=== PATIENT | male | born 1960 | race African-American/Black ===

== ENCOUNTER 2018-01-04 17:41 | Inpatient (IN) | payer OTHER ==
[~2018-01-04] VITALS: Ht 180.3 cm; Wt 100.3 kg
[2018-01-04] MEDS ORDERED: IV NORMAL SALINE 1000ML BAG 1,000 ML IV SCH (18:34)
--- NOTE | 2018-01-04 18:45 | PHYS DOC ---
Adult General Chief Complaint Chief Complaint: ABNORMAL LABS HPI HPI Patient is a 57-year-old male who presents with report of abnormal lab values that were obtained yesterday. Patient indicates that he has been having abdominal pain with decreased appetite over the last week and patient's states that she had noticed that it looked like her had been losing weight and she also noticed that his eyes were yellow. This prompted her to make sure that he was seen by his doctor. After lab work had returned today, patient's provider had contacted him in indicated that he needed to come in to the emergency room to be seen and treated. Currently patient indicates he has no pain and is not nauseated. He states that usually the pain is worsened when he coughs. He states that he has also been intermittently nauseated but has been unable to vomit. He denies any chest pain or shortness of breath. Patient just indicates that he has not been feeling well for the last week. He denies any fever. Review of Systems Review of Systems Constitutional: Denies fever or chills [] Eyes: reports yellow sclera[] Respiratory: Denies cough or shortness of breath [] Cardiovascular: Denies chest pain[] GI: Complains of abdominal pain with nausea. Denies vomiting or diarrhea[] : Reports urinary frequency without dysuria[] Musculoskeletal: Denies back pain or joint pain [] Integument: Denies rash or skin lesions [] Neurologic: Denies headache, focal weakness or sensory changes [] All other systems were reviewed and found to be within normal limits, except as documented in this note. Current Medications Current Medications Current Medications Medications (Trade) Dose Ordered Sig/Nubia Start Time Stop Time Status Last Admin Dose Admin Info (CONTRAST GIVEN -- Rx MONITORING) 1 each PRN DAILY PRN 01/04/18 20:30 01/06/18 20:29 Iohexol (Omnipaque 300 Mg/ml) 75 ml 1X ONCE 01/04/18 20:15 01/04/18 20:16 DC Piperacillin Sod/ Tazobactam Sod 3.375 gm/Sodium Chloride 50 ml @ 100 mls/hr 1X ONCE 01/04/18 20:30 01/04/18 20:59 DC 01/04/18 20:25 100 MLS/HR Sodium Chloride 1,000 ml @ 1,000 mls/hr Q1H 01/04/18 18:34 01/04/18 19:33 DC 01/04/18 18:34 1,000 MLS/HR Allergies Allergies Allergies Coded Allergies Type Severity Reaction Last Updated Verified No Known Allergies Allergy Unknown 01/04/18 Yes Physical Exam Physical Exam Constitutional: Well developed, well nourished, no acute distress, non-toxic appearance. [] HENT: Normocephalic, atraumatic, bilateral external ears normal, oropharynx moist, no oral exudates, nose normal. [] Eyes: PERRLA, EOMI, conjunctiva normal, no discharge. Scleral icterus is noted. [] Neck: Normal range of motion, no tenderness, supple, no stridor. [] Cardiovascular:Heart rate regular rhythm [] Lungs & Thorax: Bilateral breath sounds clear to auscultation [] Abdomen: Bowel sounds normal, soft, no tenderness. [] Skin: Warm, dry, no erythema, no rash. [] Extremities: No tenderness, no cyanosis, no clubbing, ROM intact, no edema. [] Neurologic: Alert and oriented X 3, normal motor function, normal sensory function, no focal deficits noted. [] Current Patient Data Vital Signs Vital Signs Date Time Temp Pulse Resp B/P (MAP) Pulse Ox O2 Delivery O2 Flow Rate FiO2 01/04/18 19:30 87 16 129/85 (100) 100 01/04/18 18:30 98.5 Room Air 98.5 Lab Values Laboratory Tests Test 01/04/18 18:35 01/04/18 19:50 White Blood Count 19.2 x10^3/uL (4.0-11.0) H Red Blood Count 4.37 x10^6/uL (4.30-5.70) Hemoglobin 14.4 g/dL (13.0-17.5) Hematocrit 41.4 % (39.0-53.0) Mean Corpuscular Volume 95 fL (79-100) Mean Corpuscular Hemoglobin 33 pg (25-35) Mean Corpuscular Hemoglobin Concent 35 g/dL (31-37) Red Cell Distribution Width 13.8 % (11.5-14.5) Platelet Count 345 x10^3/uL (140-400) Neutrophils (%) (Auto) 89 % (31-73) H Lymphocytes (%) (Auto) 4 % (24-48) L Monocytes (%) (Auto) 6 % (0-9) Eosinophils (%) (Auto) 0 % (0-3) Basophils (%) (Auto) 1 % (0-3) Neutrophils # (Auto) 17.2 x10^3uL (1.8-7.7) H Lymphocytes # (Auto) 0.8 x10^3/uL (1.0-4.8) L Monocytes # (Auto) 1.2 x10^3/uL (0.0-1.1) H Eosinophils # (Auto) 0.0 x10^3/uL (0.0-0.7) Basophils # (Auto) 0.1 x10^3/uL (0.0-0.2) Segmented Neutrophils % 84 % (35-66) H Band Neutrophils % 6 % (0-9) Lymphocytes % 5 % (24-48) L Monocytes % 5 % (0-10) Toxic Granulation Mod Toxic Vacuolation Slight Platelet Estimate Adequate (ADEQUATE) Large Platelets Present Prothrombin Time 15.1 SEC (11.7-14.0) H Prothrombin Time INR 1.2 (0.8-1.1) H Sodium Level 127 mmol/L (136-145) L Potassium Level 4.2 mmol/L (3.5-5.1) Chloride Level 89 mmol/L (98-107) L Carbon Dioxide Level 26 mmol/L (21-32) Anion Gap 12 (6-14) Blood Urea Nitrogen 25 mg/dL (8-26) Creatinine 1.3 mg/dL (0.7-1.3) Estimated GFR (Cockcroft-Gault) 68.8 Glucose Level 128 mg/dL (70-99) H Calcium Level 8.5 mg/dL (8.5-10.1) Total Bilirubin 9.9 mg/dL (0.2-1.0) H Direct Bilirubin 8.7 mg/dL (0.0-0.2) H Aspartate Amino Transferase (AST) 95 U/L (15-37) H Alanine Aminotransferase (ALT) 83 U/L (16-63) H Alkaline Phosphatase 142 U/L (46-116) H Total Protein 6.8 g/dL (6.4-8.2) Albumin 2.0 g/dL (3.4-5.0) L Lipase 179 U/L (73-393) Urine Collection Type Unknown Urine Color Erica Urine Clarity Clear Urine pH 5.0 Urine Specific [place] 1.025 Urine Protein 30 mg/dL (NEG-TRACE) Urine Glucose (UA) Negative mg/dL (NEG) Urine Ketones (Stick) 15 mg/dL (NEG) Urine Blood Moderate (NEG) Urine Nitrite (NEG) Urine Bilirubin Large (NEG) Urine Urobilinogen Dipstick 4.0 mg/dL (0.2 mg/dL) Urine Leukocyte Esterase (NEG) Urine RBC Occ /HPF (0-2) Urine WBC 1-4 /HPF (0-4) Urine Squamous Epithelial Cells Few /LPF Urine Renal Epithelial Cells Occ /LPF Urine Bacteria 0 /HPF (0-FEW) Urine Hyaline Casts Few /HPF Urine Granular Casts Moderate /HPF Urine Mucus Mod /LPF Urine Opiates Screen Neg (NEG) Urine Methadone Screen Neg (NEG) Urine Barbiturates Neg (NEG) Urine Phencyclidine Screen Neg (NEG) Urine Amphetamine/Methamphetamine Neg (NEG) Urine Benzodiazepines Screen Neg (NEG) Urine Cocaine Screen Neg (NEG) Urine Cannabinoids Screen Neg (NEG) Urine Ethyl Alcohol Neg (NEG) Laboratory Tests 01/04/18 18:35 Laboratory Tests 01/04/18 18:35 EKG EKG [] Radiology/Procedures Radiology/Procedures [] Course & Med Decision Making Course & Med Decision Making Pertinent Labs and Imaging studies reviewed. (See chart for details) [] Dragon Disclaimer Dragon Disclaimer This electronic medical record was generated, in whole or in part, using a voice recognition dictation system. Departure Departure Impression: Primary Impression: Upper abdominal pain Additional Impressions: Jaundice Hyponatremia Disposition: ADMITTED INPATIENT Admitting Physician: Keyla Peña Condition: IMPROVED Referrals: UNKNOWN PCP NAME (PCP) Problem Qualifiers ANA CRUZ Jr. DO Jan 04, 2018 18:45
[2018-01-04 18:52] LABS: BASO # 0.1 x10^3/uL (0.0-0.2); BASO % 1 % (0-3); EOS % 0 % (0-3); HEMATOCRIT 41.4 % (39.0-53.0); HEMOGLOBIN 14.4 g/dL (13.0-17.5); LYMPH # 0.8 x10^3/uL (1.0-4.8); LYMPH % 4 % (24-48); MEAN CORPUSCULAR HEMOGLOBIN 33 pg (25-35); MEAN CORPUSCULAR HGB CONC 35 g/dL (31-37); MEAN CORPUSCULAR VOLUME 95 fL (79-100); MONO # 1.2 x10^3/uL (0.0-1.1); MONO % 6 % (0-9); NEUT # 17.2 x10^3uL (1.8-7.7); NEUT % 89 % (31-73); PLATELET COUNT 345 x10^3/uL (140-400); RED BLOOD COUNT 4.37 x10^6/uL (4.30-5.70); RED CELL DISTRIBUTION WIDTH 13.8 % (11.5-14.5); WHITE BLOOD COUNT 19.2 x10^3/uL (4.0-11.0)
[2018-01-04 18:53] LABS: PROTHROMBIN TIME PATIENT 15.1 SEC (11.7-14.0)
[2018-01-04 18:58] LABS: CALCIUM 8.5 mg/dL (8.5-10.1); CREATININE 1.3 mg/dL (0.7-1.3); GFR 68.8; POTASSIUM 4.2 mmol/L (3.5-5.1)
[2018-01-04 19:04] LABS: DIRECT BILIRUBIN 8.7 mg/dL (0.0-0.2); TOTAL BILIRUBIN 9.9 mg/dL (0.2-1.0); TOTAL PROTEIN 6.8 g/dL (6.4-8.2)
[2018-01-04 19:46] LABS: % BANDS 6 % (0-9); % LYMPHS 5 % (24-48); % MONOS 5 % (0-10); % SEGS 84 % (35-66); PLT ESTIMATE ADEQUATE (ADEQUATE); TOXIC GRANULATION MOD
[2018-01-04 19:47] LABS: TOXIC VACUOLATION SLIGHT
--- NOTE | 2018-01-04 19:57 | RAD ---
Indication:abd pain, bili 8.4, elevated lfts and wbc TECHNIQUE: Grayscale, color Doppler and spectral waveform is of the abdomen obtained. COMPARISON:None FINDINGS: The visualized portions of the pancreas is within normal limits. Pancreatic tail not visualized due to overlying bowel gas. There is a 3.9 x 4.8 x 2.6 cm high echogenic lesion in the left hepatic lobe. Main portal vein is patent with hepatopedal flow. There is some hypoechoic filling defect seen in the portal vein. Hepatic veins are patent. Liver is mildly enlarged measuring 19 cm in longest dimension with diffusely increased echogenicity and decreased through transmission. Right kidney measures 13.7 cm in length without hydronephrosis. No gallstones, pericholecystic fluid or gallbladder wall thickening. CBD measures 3 mm in diameter and is within normal limits. IMPRESSION: 1. Mild hepatomegaly with hepatic steatosis. 2. Suggestion of thickening of the portal vein wall which may suggest nonoccluding eccentric thrombus. Correlation with outside CT abdomen pelvis for evaluation of portal vein is recommended. 3. Left hepatic lobe lesion most likely a hemangioma. Either correlation with outside imaging or nonemergent MRI of the abdomen with IV contrast recommended. Electronically signed by: Chauncey Gama DO (01/04/2018 7:54 PM) [facility]
[2018-01-04 20:01] LABS: BILIRUBIN,URINE LARGE (NEG); CLARITY,URINE CLEAR; PROTEIN,URINE 30 mg/dL (NEG-TRACE)
[2018-01-04 20:07] LABS: BARBITURATES NEG (NEG); BENZODIAZEPINES NEG (NEG); CANNABINOIDS NEG (NEG); COCAINE NEG (NEG); METHADONE NEG (NEG); OPIATES NEG (NEG); PHENCYCLIDINE NEG (NEG)
[2018-01-04 20:08] LABS: AMPHETAMINE/METHAMPHETAMINE NEG (NEG)
[2018-01-04 20:13] LABS: BACTERIA,URINE 0 /HPF (0-FEW); COLOR,URINE AMBER; SQUAMOUS EPITHELIAL CELL,UR FEW /LPF
[2018-01-04 20:14] LABS: GRANULAR CASTS,URINE MODERATE /HPF; HYALINE CASTS, URINE FEW /HPF; RBC,URINE OCC /HPF (0-2)
[2018-01-04] MEDS ORDERED: IOHEXOL 300 MG/ML 100ML VIAL. IV ONE (20:15)
[2018-01-04] MEDS ORDERED: CONTRAST GIVEN. MC PRN (20:30)
[2018-01-04] MEDS ORDERED: PIPERACILLIN/TAZOBACTAM 3.375 GM in IV NORMAL SALINE 50ML 50 ML IV ONE (20:30)
[2018-01-04 22:15] VITALS: BP 123/75
[2018-01-04] MEDS ORDERED: ASPI81TA50 PO (22:24)
[2018-01-04 23:00] VITALS: BP 123/78
[2018-01-05] MEDS ORDERED: ONDANSETRON PF 4 MG/2 ML VIAL. IV PRN (01:00)
[2018-01-05] MEDS ORDERED: MORPHINE SULFATE 2 MG/ML VIAL. IV PRN (01:00)
[2018-01-05] MEDS: IV NORMAL SALINE 1000ML BAG 1,000 ML IV SCH ×3 (01:07→20:10)
[2018-01-05 03:00] VITALS: BP 114/74
[2018-01-05 07:00] VITALS: BP 114/75
--- NOTE | 2018-01-05 07:13 | EKG ---
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
[2018-01-05] MEDS ORDERED: ACETAMINOPHEN 500 MG TABLET PO PRN (08:15)
[2018-01-05] MEDS ORDERED: HYDROcodone/APAP 5/325MG 1 TAB TABLET PO PRN (08:15)
[2018-01-05] MEDS ORDERED: PIP/TAZO PER PHARMACY MC PRN (08:15)
--- NOTE | 2018-01-05 09:11 | PDOC2 ---
GI CONSULT Reason For Consult: Jaundice, high bili, portal vein thrombus? HPI: HPI: 57 y/o male who has not felt well at least since 12/26/17. Describes decreased appetite and early satiety w/ weight loss of about 20 pounds. No n/v, dysphagia , reflux, diarrhea, constipation, hematochezia, or melena. Abdominal "soreness " when he coughs sometimes, but "not pain." Yesterday his noticed his eyes were yellow. Had abnormal labs as outpt and was advised to come to the ER. Significant labs: WBC 19.2, normal plt and INR, bili 9.9 (direct 8.7), AST 95, ALT 83, Alk Phos 142. Tmax 100. On US: hepatomegaly w/ hepatic steatosis, thickened portal vein, and left hepatic lobe lesion (?hemangioma). No previous EGD or colonoscopy. Denies GB, liver, and pancreas history. Denies h/o blood transfusions, Hepatitis, and IVDU. Takes ASA 81mg daily. Retired in September. Seems drank some alcohol regularly in the past (pretty vague description), none since 11/2017. PMH: PMH: "left eye aneurysm" FH: Family History: Cancer (mother - unknown kind) Social History: Smoke: <1 pack per day ALCOHOL: other (used to have 3 "drinks" plus a beer in a 5 day period, sober since November) Drugs: None ROS: GEN: Denies fevers, chills, sweats HEENT: +eyes look yellow CV: Denies chest pain RESP: Denies shortness of air, cough GI: Per HPI : Denies hematuria, dysuria ENDO: +weight loss NEURO: Denies confusion, dizziness MSK: Denies weakness, joint pain/swelling SKIN: +pruritus Vitals: Vitals: Vital Signs Date Time Temp Pulse Resp B/P (MAP) Pulse Ox O2 Delivery O2 Flow Rate FiO2 01/05/18 07:00 98.6 82 20 114/75 (88) 94 Room Air 98.6 Labs: Labs: Laboratory Tests Test 01/04/18 18:35 01/04/18 19:50 White Blood Count 19.2 x10^3/uL (4.0-11.0) Red Blood Count 4.37 x10^6/uL (4.30-5.70) Hemoglobin 14.4 g/dL (13.0-17.5) Hematocrit 41.4 % (39.0-53.0) Mean Corpuscular Volume 95 fL (79-100) Mean Corpuscular Hemoglobin 33 pg (25-35) Mean Corpuscular Hemoglobin Concent 35 g/dL (31-37) Red Cell Distribution Width 13.8 % (11.5-14.5) Platelet Count 345 x10^3/uL (140-400) Neutrophils (%) (Auto) 89 % (31-73) Lymphocytes (%) (Auto) 4 % (24-48) Monocytes (%) (Auto) 6 % (0-9) Eosinophils (%) (Auto) 0 % (0-3) Basophils (%) (Auto) 1 % (0-3) Neutrophils # (Auto) 17.2 x10^3uL (1.8-7.7) Lymphocytes # (Auto) 0.8 x10^3/uL (1.0-4.8) Monocytes # (Auto) 1.2 x10^3/uL (0.0-1.1) Eosinophils # (Auto) 0.0 x10^3/uL (0.0-0.7) Basophils # (Auto) 0.1 x10^3/uL (0.0-0.2) Segmented Neutrophils % 84 % (35-66) Band Neutrophils % 6 % (0-9) Lymphocytes % 5 % (24-48) Monocytes % 5 % (0-10) Toxic Granulation Mod Toxic Vacuolation Slight Platelet Estimate Adequate (ADEQUATE) Large Platelets Present Prothrombin Time 15.1 SEC (11.7-14.0) Prothromb Time International Ratio 1.2 (0.8-1.1) Sodium Level 127 mmol/L (136-145) Potassium Level 4.2 mmol/L (3.5-5.1) Chloride Level 89 mmol/L (98-107) Carbon Dioxide Level 26 mmol/L (21-32) Anion Gap 12 (6-14) Blood Urea Nitrogen 25 mg/dL (8-26) Creatinine 1.3 mg/dL (0.7-1.3) Estimated GFR (Cockcroft-Gault) 68.8 Glucose Level 128 mg/dL (70-99) Calcium Level 8.5 mg/dL (8.5-10.1) Total Bilirubin 9.9 mg/dL (0.2-1.0) Direct Bilirubin 8.7 mg/dL (0.0-0.2) Aspartate Amino Transf (AST/SGOT) 95 U/L (15-37) Alanine Aminotransferase (ALT/SGPT) 83 U/L (16-63) Alkaline Phosphatase 142 U/L (46-116) Total Protein 6.8 g/dL (6.4-8.2) Albumin 2.0 g/dL (3.4-5.0) Lipase 179 U/L (73-393) Thyroid Stimulating Hormone (TSH) 0.675 uIU/mL (0.358-3.74) Urine Collection Type Unknown Urine Color Erica Urine Clarity Clear Urine pH 5.0 Urine Specific [place] 1.025 Urine Protein 30 mg/dL (NEG-TRACE) Urine Glucose (UA) Negative mg/dL (NEG) Urine Ketones (Stick) 15 mg/dL (NEG) Urine Blood Moderate (NEG) Urine Nitrite (NEG) Urine Bilirubin Large (NEG) Urine Urobilinogen Dipstick 4.0 mg/dL (0.2 mg/dL) Urine Leukocyte Esterase (NEG) Urine RBC Occ /HPF (0-2) Urine WBC 1-4 /HPF (0-4) Urine Squamous Epithelial Cells Few /LPF Urine Renal Epithelial Cells Occ /LPF Urine Bacteria 0 /HPF (0-FEW) Urine Hyaline Casts Few /HPF Urine Granular Casts Moderate /HPF Urine Mucus Mod /LPF Urine Opiates Screen Neg (NEG) Urine Methadone Screen Neg (NEG) Urine Barbiturates Neg (NEG) Urine Phencyclidine Screen Neg (NEG) Urine Amphetamine/Methamphetamine Neg (NEG) Urine Benzodiazepines Screen Neg (NEG) Urine Cocaine Screen Neg (NEG) Urine Cannabinoids Screen Neg (NEG) Urine Ethyl Alcohol Neg (NEG) Allergies: Coded Allergies: No Known Allergies (Verified Allergy, Unknown, 01/04/18) Medications: Current Medications Medications (Trade) Dose Ordered Sig/Nubia Route PRN Reason Start Time Stop Time Status Last Admin Dose Admin Sodium Chloride 1,000 ml @ 1,000 mls/hr Q1H IV 01/04/18 18:34 01/04/18 19:33 DC 01/04/18 18:34 Piperacillin Sod/ Tazobactam Sod 3.375 gm/Sodium Chloride 50 ml @ 100 mls/hr 1X ONCE IV 01/04/18 20:30 01/04/18 20:59 DC 01/04/18 20:25 Sodium Chloride 1,000 ml @ 125 mls/hr Q8H IV 01/05/18 01:00 01/05/18 01:07 Imaging: Imaging: RUQ US IMPRESSION: 1. Mild hepatomegaly with hepatic steatosis. 2. Suggestion of thickening of the portal vein wall which may suggest nonoccluding eccentric thrombus. Correlation with outside CT abdomen pelvis for evaluation of portal vein is recommended. 3. Left hepatic lobe lesion most likely a hemangioma. Either correlation with outside imaging or nonemergent MRI of the abdomen with IV contrast recommended. PE: GEN: NAD HEENT: Atraumatic, +sclerae icteric LUNGS: CTAB HEART: RRR ABD: NABS, more firm/fullness in RUQ, not particularly tender or distended EXTREMITY: No edema SKIN: No rashes NEURO/PSYCH: A & O 3 A/P: A/P: Decreased appetite, early satiety, scleral icterus Leukocytosis, hyponatremia, hyperbilirubinemia Abnormal liver imaging - hepatomegaly, hepatic steatosis, thickened PV, left hepatic lesion CRC screen - none -- Reviewed w/ Dr. Verde - check CT w/ contrast. EVIN JEAN Jan 05, 2018 09:11
[2018-01-05] MEDS ORDERED: CONTRAST GIVEN. MC PRN (09:30)
[2018-01-05] MEDS ORDERED: IOHEXOL 300 MG/ML 100ML VIAL. IV ONE (09:30)
[2018-01-05] MEDS: PIPERACILLIN/TAZOBACTAM 3.375 GM in IV NORMAL SALINE 50ML 50 ML IV SCH ×2 (10:25→17:31)
[2018-01-05 11:00] VITALS: BP 112/75
--- NOTE | 2018-01-05 11:31 | PDOC1 ---
History and Physical Date of Admission Date of Admission DATE: 01/05/18 TIME: 11:22 Identification/Chief Complaint Chief Complaint Yellow skin, weight loss, poor appetite Source Source: Caregiver, Chart review, Patient History of Present Illness History of Present Illness Very pleasant 57-year-old -[place] male otherwise previously healthy, no home meds prior to admission, is concerned because of the above chief complaint, jaundice, icteric sclerae, weight loss, poor appetite and tea- colored urine. Went to see PCP or other medical services, labs were drawn and were abnormal hence advised to come to the hospital. At the emergency room, bilirubin is high 9.9-with direct bilirubin 8.7-with febrile temperatures 100.2. Also bilirubin seen in the urine. Urine is tea colored as seen on urinal. AST elevated 95, ALT elevated at 83, jaundiced with icteric sclerae. Alkaline phosphatase elevated at 140s. Albumin albumin low at 2.0. WBC elevated at 19.2 with no obvious source. Some hyponatremia 127. Patient denies any history of hepatitis or known liver disease. 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 But maybe stopped 1 month ago. He has been complaining of weight loss fatigue, for maybe a week or 2. GI has seen, we'll order some or imaging and blood tests. Patient is agreeable with plan of care. Patient is nontoxic appearing, no nausea vomiting emesis, tolerated breakfast fine. CT imaging shows fatty liver, steatosis, possible eccentric nonocclusive thrombus portal system/portal vein? Past Medical History Cardiovascular: No pertinent hx Pulmonary: No pertinent hx GI: No pertinent hx Heme/Onc: No pertinent hx Hepatobiliary: No pertinent hx Psych: No pertinent hx Rheumatologic: No pertinent hx Infectious disease: No pertinent hx ENT: No pertinent hx Renal/: No pertinent hx Endocrine: No pertinent hx Dermatology: No pertinent hx Past Surgical History Past Surgical History: No pertinent history Family History Family History: No Significant Social History Smoke: No ALCOHOL: other (used to have 3 "drinks" plus a beer in a 5 day period, sober since November) Drugs: None Current Problem List Problem List Problems Medical Problems: (1) Hyponatremia Status: Acute (2) Jaundice Status: Acute (3) Upper abdominal pain Status: Acute Current Medications Current Medications Current Medications Sodium Chloride 1,000 ml @ 1,000 mls/hr Q1H IV Last administered on at 18:34; Start 01/04/18 at 18:34; Stop 01/04/18 at 19:33; Status DC Piperacillin Sod/ Tazobactam Sod 3.375 gm/Sodium Chloride 50 ml @ 100 mls/hr 1X ONCE IV Last administered on 01/04/18at 20:25; Start 01/04/18 at 20:30; Stop 01/04/18 at 20:59; Status DC Iohexol (Omnipaque 300 Mg/ml) 75 ml 1X ONCE IV ; Start 01/04/18 at 20:15; Stop 01/04/18 at 20:16; Status DC Info (CONTRAST GIVEN -- Rx MONITORING) 1 each PRN DAILY PRN MC SEE COMMENTS; Start 01/04/18 at 20:30; Stop 01/06/18 at 20:29 Influenza Virus Vaccine (Afluria Trivalent 5650-5013 Syringe) 0.5 ml ONCE ONCE VAX IM Last administered on 01/05/18at 10:26; Start 01/05/18 at 09:00; Stop 01/05/18 at 09:01; Status DC Ondansetron HCl (Zofran) 4 mg PRN Q6HRS PRN IV NAUSEA/VOMITING; Start at 01:00 Morphine Sulfate (Morphine Sulfate) 2 mg PRN Q2HR PRN IV PAIN; Start 01/05/18 at 01:00 Sodium Chloride 1,000 ml @ 125 mls/hr Q8H IV Last administered on 01/05/18at 01:07; Start 01/05/18 at 01:00 Acetaminophen/ Hydrocodone Bitart (Lortab 5/325) 1 tab PRN Q4HRS PRN PO PAIN; Start 01/05/18 at 08:15 Piperacillin Sod/ Tazobactam Sod (Zosyn Per Pharmacy) 1 each PRN DAILY PRN MC SEE COMMENTS; Start 01/05/18 at 08:15 Acetaminophen (Tylenol) 500 mg PRN Q6HRS PRN PO MILD PAIN / TEMP; Start at 08:15 Aspirin (Ecotrin) 81 mg DAILY PO ; Start 01/05/18 at 09:00 Piperacillin Sod/ Tazobactam Sod 3.375 gm/Sodium Chloride 50 ml @ 100 mls/hr Q6HRS IV Last administered on 01/05/18at 10:25; Start 01/05/18 at 09:00 Iohexol (Omnipaque 300 Mg/ml) 75 ml 1X ONCE IV ; Start 01/05/18 at 09:30; Stop 01/05/18 at 09:31; Status DC Info (CONTRAST GIVEN -- Rx MONITORING) 1 each PRN DAILY PRN MC SEE COMMENTS; Start 01/05/18 at 09:30; Stop 01/07/18 at 09:29 Active Scripts Active Reported Aspir-Low (Aspirin) 81 Mg Tablet. 1 Tab PO DAILY Allergies Allergies: Coded Allergies: No Known Allergies (Verified Allergy, Unknown, 01/04/18) ROS Review of System Pos for weight loss, fatigability, jaundice, icteric sclerae, decreased appetite , no chest pain, mild abdominal pain/ more of discomfort, especially when he coughs abdominal pain Physical Exam General: Oriented X3, Cooperative, No acute distress HEENT: PERRLA, EOMI, Mucous membr. moist/pink, Other (mildly icteric sclerae) Lungs: Clear to auscultation, Normal air movement Heart: S1S2, RRR, no thrills, no rubs, no gallops, no murmurs, no jug vein distention Cardiovascular: S1, S2 Abdomen: Normal bowel sounds, Soft, No tenderness, No hepatosplenomegaly, No masses, Other (hard to appreciate jaundice given skin color) Male Genitals Exam: normal genitalia, normal prostate Rectal Exam: not examined PELVIC: Nml ext genitalia Extremities: No clubbing, No cyanosis, No edema, Normal pulses, No tenderness/ swelling Skin: No rashes, No breakdown, No significant lesion Neuro: Normal gait, Normal speech, Strength at 5/5 X4 ext, Normal tone, Sensation intact, Cranial nerves 3-12 NL, Reflexes 2+ Psych/Mental Status: Mental status NL, Mood NL Vitals Vitals Vital Signs Date Time Temp Pulse Resp B/P (MAP) Pulse Ox O2 Delivery O2 Flow Rate FiO2 01/05/18 08:00 Room Air 01/05/18 07:00 98.6 82 20 114/75 (88) 94 98.6 Labs Labs Laboratory Tests Test 01/04/18 18:35 01/04/18 19:50 White Blood Count 19.2 x10^3/uL (4.0-11.0) Red Blood Count 4.37 x10^6/uL (4.30-5.70) Hemoglobin 14.4 g/dL (13.0-17.5) Hematocrit 41.4 % (39.0-53.0) Mean Corpuscular Volume 95 fL (79-100) Mean Corpuscular Hemoglobin 33 pg (25-35) Mean Corpuscular Hemoglobin Concent 35 g/dL (31-37) Red Cell Distribution Width 13.8 % (11.5-14.5) Platelet Count 345 x10^3/uL (140-400) Neutrophils (%) (Auto) 89 % (31-73) Lymphocytes (%) (Auto) 4 % (24-48) Monocytes (%) (Auto) 6 % (0-9) Eosinophils (%) (Auto) 0 % (0-3) Basophils (%) (Auto) 1 % (0-3) Neutrophils # (Auto) 17.2 x10^3uL (1.8-7.7) Lymphocytes # (Auto) 0.8 x10^3/uL (1.0-4.8) Monocytes # (Auto) 1.2 x10^3/uL (0.0-1.1) Eosinophils # (Auto) 0.0 x10^3/uL (0.0-0.7) Basophils # (Auto) 0.1 x10^3/uL (0.0-0.2) Segmented Neutrophils % 84 % (35-66) Band Neutrophils % 6 % (0-9) Lymphocytes % 5 % (24-48) Monocytes % 5 % (0-10) Toxic Granulation Mod Toxic Vacuolation Slight Platelet Estimate Adequate (ADEQUATE) Large Platelets Present Prothrombin Time 15.1 SEC (11.7-14.0) Prothromb Time International Ratio 1.2 (0.8-1.1) Sodium Level 127 mmol/L (136-145) Potassium Level 4.2 mmol/L (3.5-5.1) Chloride Level 89 mmol/L (98-107) Carbon Dioxide Level 26 mmol/L (21-32) Anion Gap 12 (6-14) Blood Urea Nitrogen 25 mg/dL (8-26) Creatinine 1.3 mg/dL (0.7-1.3) Estimated GFR (Cockcroft-Gault) 68.8 Glucose Level 128 mg/dL (70-99) Calcium Level 8.5 mg/dL (8.5-10.1) Total Bilirubin 9.9 mg/dL (0.2-1.0) Direct Bilirubin 8.7 mg/dL (0.0-0.2) Aspartate Amino Transf (AST/SGOT) 95 U/L (15-37) Alanine Aminotransferase (ALT/SGPT) 83 U/L (16-63) Alkaline Phosphatase 142 U/L (46-116) Total Protein 6.8 g/dL (6.4-8.2) Albumin 2.0 g/dL (3.4-5.0) Lipase 179 U/L (73-393) Thyroid Stimulating Hormone (TSH) 0.675 uIU/mL (0.358-3.74) Urine Collection Type Unknown Urine Color Erica Urine Clarity Clear Urine pH 5.0 Urine Specific [place] 1.025 Urine Protein 30 mg/dL (NEG-TRACE) Urine Glucose (UA) Negative mg/dL (NEG) Urine Ketones (Stick) 15 mg/dL (NEG) Urine Blood Moderate (NEG) Urine Nitrite (NEG) Urine Bilirubin Large (NEG) Urine Urobilinogen Dipstick 4.0 mg/dL (0.2 mg/dL) Urine Leukocyte Esterase (NEG) Urine RBC Occ /HPF (0-2) Urine WBC 1-4 /HPF (0-4) Urine Squamous Epithelial Cells Few /LPF Urine Renal Epithelial Cells Occ /LPF Urine Bacteria 0 /HPF (0-FEW) Urine Hyaline Casts Few /HPF Urine Granular Casts Moderate /HPF Urine Mucus Mod /LPF Urine Opiates Screen Neg (NEG) Urine Methadone Screen Neg (NEG) Urine Barbiturates Neg (NEG) Urine Phencyclidine Screen Neg (NEG) Urine Amphetamine/Methamphetamine Neg (NEG) Urine Benzodiazepines Screen Neg (NEG) Urine Cocaine Screen Neg (NEG) Urine Cannabinoids Screen Neg (NEG) Urine Ethyl Alcohol Neg (NEG) Laboratory Tests Test 01/04/18 18:35 01/04/18 19:50 White Blood Count 19.2 x10^3/uL (4.0-11.0) Red Blood Count 4.37 x10^6/uL (4.30-5.70) Hemoglobin 14.4 g/dL (13.0-17.5) Hematocrit 41.4 % (39.0-53.0) Mean Corpuscular Volume 95 fL (79-100) Mean Corpuscular Hemoglobin 33 pg (25-35) Mean Corpuscular Hemoglobin Concent 35 g/dL (31-37) Red Cell Distribution Width 13.8 % (11.5-14.5) Platelet Count 345 x10^3/uL (140-400) Neutrophils (%) (Auto) 89 % (31-73) Lymphocytes (%) (Auto) 4 % (24-48) Monocytes (%) (Auto) 6 % (0-9) Eosinophils (%) (Auto) 0 % (0-3) Basophils (%) (Auto) 1 % (0-3) Neutrophils # (Auto) 17.2 x10^3uL (1.8-7.7) Lymphocytes # (Auto) 0.8 x10^3/uL (1.0-4.8) Monocytes # (Auto) 1.2 x10^3/uL (0.0-1.1) Eosinophils # (Auto) 0.0 x10^3/uL (0.0-0.7) Basophils # (Auto) 0.1 x10^3/uL (0.0-0.2) Segmented Neutrophils % 84 % (35-66) Band Neutrophils % 6 % (0-9) Lymphocytes % 5 % (24-48) Monocytes % 5 % (0-10) Toxic Granulation Mod Toxic Vacuolation Slight Platelet Estimate Adequate (ADEQUATE) Large Platelets Present Prothrombin Time 15.1 SEC (11.7-14.0) Prothromb Time International Ratio 1.2 (0.8-1.1) Sodium Level 127 mmol/L (136-145) Potassium Level 4.2 mmol/L (3.5-5.1) Chloride Level 89 mmol/L (98-107) Carbon Dioxide Level 26 mmol/L (21-32) Anion Gap 12 (6-14) Blood Urea Nitrogen 25 mg/dL (8-26) Creatinine 1.3 mg/dL (0.7-1.3) Estimated GFR (Cockcroft-Gault) 68.8 Glucose Level 128 mg/dL (70-99) Calcium Level 8.5 mg/dL (8.5-10.1) Total Bilirubin 9.9 mg/dL (0.2-1.0) Direct Bilirubin 8.7 mg/dL (0.0-0.2) Aspartate Amino Transf (AST/SGOT) 95 U/L (15-37) Alanine Aminotransferase (ALT/SGPT) 83 U/L (16-63) Alkaline Phosphatase 142 U/L (46-116) Total Protein 6.8 g/dL (6.4-8.2) Albumin 2.0 g/dL (3.4-5.0) Lipase 179 U/L (73-393) Thyroid Stimulating Hormone (TSH) 0.675 uIU/mL (0.358-3.74) Urine Collection Type Unknown Urine Color Erica Urine Clarity Clear Urine pH 5.0 Urine Specific [place] 1.025 Urine Protein 30 mg/dL (NEG-TRACE) Urine Glucose (UA) Negative mg/dL (NEG) Urine Ketones (Stick) 15 mg/dL (NEG) Urine Blood Moderate (NEG) Urine Nitrite (NEG) Urine Bilirubin Large (NEG) Urine Urobilinogen Dipstick 4.0 mg/dL (0.2 mg/dL) Urine Leukocyte Esterase (NEG) Urine RBC Occ /HPF (0-2) Urine WBC 1-4 /HPF (0-4) Urine Squamous Epithelial Cells Few /LPF Urine Renal Epithelial Cells Occ /LPF Urine Bacteria 0 /HPF (0-FEW) Urine Hyaline Casts Few /HPF Urine Granular Casts Moderate /HPF Urine Mucus Mod /LPF Urine Opiates Screen Neg (NEG) Urine Methadone Screen Neg (NEG) Urine Barbiturates Neg (NEG) Urine Phencyclidine Screen Neg (NEG) Urine Amphetamine/Methamphetamine Neg (NEG) Urine Benzodiazepines Screen Neg (NEG) Urine Cocaine Screen Neg (NEG) Urine Cannabinoids Screen Neg (NEG) Urine Ethyl Alcohol Neg (NEG) VTE Prophylaxis Ordered VTE Prophylaxis Devices: Yes VTE Pharmacological Prophylaxi: Yes Assessment/Plan Assessment/Plan Direct hyperbilirubinemia Icteric sclerae NOn Occlusive eccentric thrombus portal vein? 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 - check TSH CHeck CT abd further eval the US findings I did not start any OAC yet for the non occlusive thrombus mentioned on CT - need to dw GI, wait for further diagnostics dw pt Labs again GENIA Garcia MD Jan 05, 2018 11:31
[2018-01-05] MEDS: ASPIRIN ENTERIC COATED 81 MG TABLET.DR. PO SCH (12:58)
[2018-01-05 15:00] VITALS: BP 114/77
--- NOTE | 2018-01-05 16:43 | RAD ---
CT of the abdomen and pelvis with contrast, 01/05/2018: HISTORY: Abdominal pain and elevated bilirubin Multidetector CT imaging was performed following oral and IV administration of contrast. There are bibasilar linear pulmonary opacities compatible with atelectasis and/or scarring. The degree of vascular opacification on this study is suboptimal. The main portal vein is patent. The portal vein branches and hepatic veins are poorly opacified. No hepatic mass is identified. The gallbladder is not dilated. No gallstones are seen. The pancreas is unremarkable. The spleen is of normal size. No renal or adrenal abnormality is detected. Mild aortoiliac calcific plaquing is present. There is only slight dilatation of the distal abdominal aorta near the aortic bifurcation. It measures 2.7 cm. No abdominal or pelvic adenopathy is seen. The bowel loops are not dilated. There is contrast material in the appendix. No free air or free fluid is evident in the abdomen or pelvis. There is fluid in the incompletely visualized scrotum compatible with a hydrocele. IMPRESSION: 1. Poor opacification of the liver and the intrahepatic vasculature. The patient's possible left hepatic mass is not delineated. Multiphase CT scanning of the liver is suggested for further evaluation, if clinically indicated. 2. No acute intra-abdominal abnormality is detected. 3. Scrotal hydrocele. 4. Moderate bibasilar linear atelectasis and/or scarring. PQRS Compliance Statement: One or more of the following individualized dose reduction techniques were utilized for this examination: 1. Automated exposure control 2. Adjustment of the mA and/or kV according to patient size 3. Use of iterative reconstruction technique Electronically signed by: Sujit Carolina MD (01/05/2018 4:40 PM) [facility]
[2018-01-05 19:00] VITALS: BP 115/75
[2018-01-05 23:00] VITALS: BP 114/71
[2018-01-06] MEDS: PIPERACILLIN/TAZOBACTAM 3.375 GM in IV NORMAL SALINE 50ML 50 ML IV SCH ×5 (00:13→23:31)
[2018-01-06 02:52] VITALS: BP 112/69
[2018-01-06] MEDS: IV NORMAL SALINE 1000ML BAG 1,000 ML IV SCH ×3 (03:52→20:47)
[2018-01-06 07:00] VITALS: BP 111/70
[2018-01-06 08:32] LABS: CALCIUM 8.4 mg/dL (8.5-10.1); GFR 93.2; POTASSIUM 3.7 mmol/L (3.5-5.1)
[2018-01-06 09:21] LABS: ALBUMIN 1.4 g/dL (3.4-5.0); DIRECT BILIRUBIN 5.3 mg/dL (0.0-0.2); TOTAL PROTEIN 6.5 g/dL (6.4-8.2)
[2018-01-06 10:13] LABS: BASO # 0.1 x10^3/uL (0.0-0.2); BASO % 1 % (0-3); EOS % 0 % (0-3); HEMATOCRIT 36.7 % (39.0-53.0); HEMOGLOBIN 12.7 g/dL (13.0-17.5); LYMPH # 1.4 x10^3/uL (1.0-4.8); LYMPH % 11 % (24-48); MEAN CORPUSCULAR HEMOGLOBIN 33 pg (25-35); MEAN CORPUSCULAR HGB CONC 35 g/dL (31-37); MEAN CORPUSCULAR VOLUME 95 fL (79-100); MONO # 0.6 x10^3/uL (0.0-1.1); MONO % 5 % (0-9); NEUT % 84 % (31-73); PLATELET COUNT 462 x10^3/uL (140-400); RED BLOOD COUNT 3.86 x10^6/uL (4.30-5.70); RED CELL DISTRIBUTION WIDTH 13.8 % (11.5-14.5); WHITE BLOOD COUNT 13.2 x10^3/uL (4.0-11.0)
[2018-01-06] MEDS: ASPIRIN ENTERIC COATED 81 MG TABLET.DR. PO SCH (10:35)
[2018-01-06 11:00] VITALS: BP 105/72
--- NOTE | 2018-01-06 11:20 | PDOC ---
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 Elevated LFTs-AST 95, ALT 83, alkaline phosphatase 140s SIRS-leukocytosis 19.2 Fevers-MAXIMUM TEMPERATURE 100.2 History of Present Illness History of Present Illness He has no complaints No fevers CAT scan is pretty much unimpressive-no CBD stones or obstrxn that would explain his mild jaundice was not able to appreciate a hemangioma or liver mass seen on ultrasound No mention of portal vein thrombosis at bedside, admits to pt weight loss 10 lbs maybe in 2-3 mos MRCP done, pending results PLAn: ff up MRCP Follow GI recs I have provided CAT scan copies to patient Vitals Vitals Vital Signs Date Time Temp Pulse Resp B/P (MAP) Pulse Ox O2 Delivery O2 Flow Rate FiO2 01/06/18 08:00 Room Air 01/06/18 07:00 98.6 76 20 111/70 (84) 97 98.6 Physical Exam General: Alert, Oriented X3, Cooperative, No acute distress Heart: Regular rate, Normal S1, Normal S2 Lungs: Clear Abdomen: Normal bowel sounds, Soft, No tenderness, No hepatosplenomegaly, No masses, Other (hard to appreciate jaundice given skin color) Extremities: No clubbing, No cyanosis, No edema, Normal pulses, No tenderness/ swelling Skin: No rashes, No breakdown, No significant lesion Labs LABS Laboratory Tests Test 01/05/18 16:25 01/06/18 07:36 Hepatitis A IgM Antibody Nonreactive (Nonreactive) White Blood Count 13.2 x10^3/uL (4.0-11.0) Red Blood Count 3.86 x10^6/uL (4.30-5.70) Hemoglobin 12.7 g/dL (13.0-17.5) Hematocrit 36.7 % (39.0-53.0) Mean Corpuscular Volume 95 fL (79-100) Mean Corpuscular Hemoglobin 33 pg (25-35) Mean Corpuscular Hemoglobin Concent 35 g/dL (31-37) Red Cell Distribution Width 13.8 % (11.5-14.5) Platelet Count 462 x10^3/uL (140-400) Neutrophils (%) (Auto) 84 % (31-73) Lymphocytes (%) (Auto) 11 % (24-48) Monocytes (%) (Auto) 5 % (0-9) Eosinophils (%) (Auto) 0 % (0-3) Basophils (%) (Auto) 1 % (0-3) Neutrophils # (Auto) 11.0 x10^3uL (1.8-7.7) Lymphocytes # (Auto) 1.4 x10^3/uL (1.0-4.8) Monocytes # (Auto) 0.6 x10^3/uL (0.0-1.1) Eosinophils # (Auto) 0.0 x10^3/uL (0.0-0.7) Basophils # (Auto) 0.1 x10^3/uL (0.0-0.2) Sodium Level 132 mmol/L (136-145) Potassium Level 3.7 mmol/L (3.5-5.1) Chloride Level 98 mmol/L (98-107) Carbon Dioxide Level 26 mmol/L (21-32) Anion Gap 8 (6-14) Blood Urea Nitrogen 13 mg/dL (8-26) Creatinine 1.0 mg/dL (0.7-1.3) Estimated GFR (Cockcroft-Gault) 93.2 Glucose Level 88 mg/dL (70-99) Calcium Level 8.4 mg/dL (8.5-10.1) Total Bilirubin 6.0 mg/dL (0.2-1.0) Direct Bilirubin 5.3 mg/dL (0.0-0.2) Aspartate Amino Transf (AST/SGOT) 73 U/L (15-37) Alanine Aminotransferase (ALT/SGPT) 61 U/L (16-63) Alkaline Phosphatase 116 U/L (46-116) Total Protein 6.5 g/dL (6.4-8.2) Albumin 1.4 g/dL (3.4-5.0) Review of Systems Review of Systems A 14 point ROS was completed with the following noted as positive: Other systems reviewed and negative. \CONSTITUTIONAL: No fever or chills EYES: No recent changes SKIN: No rash or itching CARDIOVASCULAR: No chest pain, syncope, palpitations, or edema RESPIRATORY: No SOB or cough GASTROINTESTINAL: No nausea, vomiting or abdominal pain NEUROLOGICAL: No headaches or weakness ENDOCRINE: No cold or heat intolerance GENITOURINARY: No urgency or frequency of urination MUSCULOSKELETAL: No back pain or joint pain LYMPHATICS: No enlarged lymph nodes PSYCHIATRIC: No anxiety or depression Assessment and Plan Assessmemt and Plan Problems Medical Problems: (1) Hyponatremia Status: Acute (2) Jaundice Status: Acute (3) Upper abdominal pain Status: Acute Comment Review of Relevant I have reviewed the following items [place] (where applicable) has been applied. Labs Laboratory Tests Test 01/04/18 18:35 01/04/18 19:50 01/05/18 16:25 01/06/18 07:36 White Blood Count 19.2 x10^3/uL (4.0-11.0) 13.2 x10^3/uL (4.0-11.0) Red Blood Count 4.37 x10^6/uL (4.30-5.70) 3.86 x10^6/uL (4.30-5.70) Hemoglobin 14.4 g/dL (13.0-17.5) 12.7 g/dL (13.0-17.5) Hematocrit 41.4 % (39.0-53.0) 36.7 % (39.0-53.0) Mean Corpuscular Volume 95 fL (79-100) 95 fL (79-100) Mean Corpuscular Hemoglobin 33 pg (25-35) 33 pg (25-35) Mean Corpuscular Hemoglobin Concent 35 g/dL (31-37) 35 g/dL (31-37) Red Cell Distribution Width 13.8 % (11.5-14.5) 13.8 % (11.5-14.5) Platelet Count 345 x10^3/uL (140-400) 462 x10^3/uL (140-400) Neutrophils (%) (Auto) 89 % (31-73) 84 % (31-73) Lymphocytes (%) (Auto) 4 % (24-48) 11 % (24-48) Monocytes (%) (Auto) 6 % (0-9) 5 % (0-9) Eosinophils (%) (Auto) 0 % (0-3) 0 % (0-3) Basophils (%) (Auto) 1 % (0-3) 1 % (0-3) Neutrophils # (Auto) 17.2 x10^3uL (1.8-7.7) 11.0 x10^3uL (1.8-7.7) Lymphocytes # (Auto) 0.8 x10^3/uL (1.0-4.8) 1.4 x10^3/uL (1.0-4.8) Monocytes # (Auto) 1.2 x10^3/uL (0.0-1.1) 0.6 x10^3/uL (0.0-1.1) Eosinophils # (Auto) 0.0 x10^3/uL (0.0-0.7) 0.0 x10^3/uL (0.0-0.7) Basophils # (Auto) 0.1 x10^3/uL (0.0-0.2) 0.1 x10^3/uL (0.0-0.2) Segmented Neutrophils % 84 % (35-66) Band Neutrophils % 6 % (0-9) Lymphocytes % 5 % (24-48) Monocytes % 5 % (0-10) Toxic Granulation Mod Toxic Vacuolation Slight Platelet Estimate Adequate (ADEQUATE) Large Platelets Present Prothrombin Time 15.1 SEC (11.7-14.0) Prothromb Time International Ratio 1.2 (0.8-1.1) Sodium Level 127 mmol/L (136-145) 132 mmol/L (136-145) Potassium Level 4.2 mmol/L (3.5-5.1) 3.7 mmol/L (3.5-5.1) Chloride Level 89 mmol/L (98-107) 98 mmol/L (98-107) Carbon Dioxide Level 26 mmol/L (21-32) 26 mmol/L (21-32) Anion Gap 12 (6-14) 8 (6-14) Blood Urea Nitrogen 25 mg/dL (8-26) 13 mg/dL (8-26) Creatinine 1.3 mg/dL (0.7-1.3) 1.0 mg/dL (0.7-1.3) Estimated GFR (Cockcroft-Gault) 68.8 93.2 Glucose Level 128 mg/dL (70-99) 88 mg/dL (70-99) Calcium Level 8.5 mg/dL (8.5-10.1) 8.4 mg/dL (8.5-10.1) Total Bilirubin 9.9 mg/dL (0.2-1.0) 6.0 mg/dL (0.2-1.0) Direct Bilirubin 8.7 mg/dL (0.0-0.2) 5.3 mg/dL (0.0-0.2) Aspartate Amino Transf (AST/SGOT) 95 U/L (15-37) 73 U/L (15-37) Alanine Aminotransferase (ALT/SGPT) 83 U/L (16-63) 61 U/L (16-63) Alkaline Phosphatase 142 U/L (46-116) 116 U/L (46-116) Total Protein 6.8 g/dL (6.4-8.2) 6.5 g/dL (6.4-8.2) Albumin 2.0 g/dL (3.4-5.0) 1.4 g/dL (3.4-5.0) Lipase 179 U/L (73-393) Thyroid Stimulating Hormone (TSH) 0.675 uIU/mL (0.358-3.74) Urine Collection Type Unknown Urine Color Erica Urine Clarity Clear Urine pH 5.0 Urine Specific [place] 1.025 Urine Protein 30 mg/dL (NEG-TRACE) Urine Glucose (UA) Negative mg/dL (NEG) Urine Ketones (Stick) 15 mg/dL (NEG) Urine Blood Moderate (NEG) Urine Nitrite (NEG) Urine Bilirubin Large (NEG) Urine Urobilinogen Dipstick 4.0 mg/dL (0.2 mg/dL) Urine Leukocyte Esterase (NEG) Urine RBC Occ /HPF (0-2) Urine WBC 1-4 /HPF (0-4) Urine Squamous Epithelial Cells Few /LPF Urine Renal Epithelial Cells Occ /LPF Urine Bacteria 0 /HPF (0-FEW) Urine Hyaline Casts Few /HPF Urine Granular Casts Moderate /HPF Urine Mucus Mod /LPF Urine Opiates Screen Neg (NEG) Urine Methadone Screen Neg (NEG) Urine Barbiturates Neg (NEG) Urine Phencyclidine Screen Neg (NEG) Urine Amphetamine/Methamphetamine Neg (NEG) Urine Benzodiazepines Screen Neg (NEG) Urine Cocaine Screen Neg (NEG) Urine Cannabinoids Screen Neg (NEG) Urine Ethyl Alcohol Neg (NEG) Hepatitis A IgM Antibody Nonreactive (Nonreactive) Laboratory Tests Test 01/05/18 16:25 01/06/18 07:36 Hepatitis A IgM Antibody Nonreactive (Nonreactive) White Blood Count 13.2 x10^3/uL (4.0-11.0) Red Blood Count 3.86 x10^6/uL (4.30-5.70) Hemoglobin 12.7 g/dL (13.0-17.5) Hematocrit 36.7 % (39.0-53.0) Mean Corpuscular Volume 95 fL (79-100) Mean Corpuscular Hemoglobin 33 pg (25-35) Mean Corpuscular Hemoglobin Concent 35 g/dL (31-37) Red Cell Distribution Width 13.8 % (11.5-14.5) Platelet Count 462 x10^3/uL (140-400) Neutrophils (%) (Auto) 84 % (31-73) Lymphocytes (%) (Auto) 11 % (24-48) Monocytes (%) (Auto) 5 % (0-9) Eosinophils (%) (Auto) 0 % (0-3) Basophils (%) (Auto) 1 % (0-3) Neutrophils # (Auto) 11.0 x10^3uL (1.8-7.7) Lymphocytes # (Auto) 1.4 x10^3/uL (1.0-4.8) Monocytes # (Auto) 0.6 x10^3/uL (0.0-1.1) Eosinophils # (Auto) 0.0 x10^3/uL (0.0-0.7) Basophils # (Auto) 0.1 x10^3/uL (0.0-0.2) Sodium Level 132 mmol/L (136-145) Potassium Level 3.7 mmol/L (3.5-5.1) Chloride Level 98 mmol/L (98-107) Carbon Dioxide Level 26 mmol/L (21-32) Anion Gap 8 (6-14) Blood Urea Nitrogen 13 mg/dL (8-26) Creatinine 1.0 mg/dL (0.7-1.3) Estimated GFR (Cockcroft-Gault) 93.2 Glucose Level 88 mg/dL (70-99) Calcium Level 8.4 mg/dL (8.5-10.1) Total Bilirubin 6.0 mg/dL (0.2-1.0) Direct Bilirubin 5.3 mg/dL (0.0-0.2) Aspartate Amino Transf (AST/SGOT) 73 U/L (15-37) Alanine Aminotransferase (ALT/SGPT) 61 U/L (16-63) Alkaline Phosphatase 116 U/L (46-116) Total Protein 6.5 g/dL (6.4-8.2) Albumin 1.4 g/dL (3.4-5.0) Medications Current Medications Sodium Chloride 1,000 ml @ 1,000 mls/hr Q1H IV Last administered on at 18:34; Start 01/04/18 at 18:34; Stop 01/04/18 at 19:33; Status DC Piperacillin Sod/ Tazobactam Sod 3.375 gm/Sodium Chloride 50 ml @ 100 mls/hr 1X ONCE IV Last administered on 01/04/18at 20:25; Start 01/04/18 at 20:30; Stop 01/04/18 at 20:59; Status DC Iohexol (Omnipaque 300 Mg/ml) 75 ml 1X ONCE IV Last administered on at 20:15; Start 01/04/18 at 20:15; Stop 01/04/18 at 20:16; Status DC Info (CONTRAST GIVEN -- Rx MONITORING) 1 each PRN DAILY PRN MC SEE COMMENTS; Start 01/04/18 at 20:30; Stop 01/05/18 at 19:45; Status DC Influenza Virus Vaccine (Afluria Trivalent [id number] Syringe) 0.5 ml ONCE ONCE VAX IM Last administered on 01/05/18at 10:26; Start 01/05/18 at 09:00; Stop 01/05/18 at 09:01; Status DC Ondansetron HCl (Zofran) 4 mg PRN Q6HRS PRN IV NAUSEA/VOMITING; Start at 01:00 Morphine Sulfate (Morphine Sulfate) 2 mg PRN Q2HR PRN IV PAIN; Start 01/05/18 at 01:00 Sodium Chloride 1,000 ml @ 125 mls/hr Q8H IV Last administered on 01/06/18at 03:52; Start 01/05/18 at 01:00 Acetaminophen/ Hydrocodone Bitart (Lortab 5/325) 1 tab PRN Q4HRS PRN PO PAIN; Start 01/05/18 at 08:15 Piperacillin Sod/ Tazobactam Sod (Zosyn Per Pharmacy) 1 each PRN DAILY PRN MC SEE COMMENTS; Start 01/05/18 at 08:15 Acetaminophen (Tylenol) 500 mg PRN Q6HRS PRN PO MILD PAIN / TEMP; Start at 08:15 Aspirin (Ecotrin) 81 mg DAILY PO Last administered on 01/06/18at 10:35; Start 01/05/18 at 09:00 Piperacillin Sod/ Tazobactam Sod 3.375 gm/Sodium Chloride 50 ml @ 100 mls/hr Q6HRS IV Last administered on 01/06/18at 05:19; Start 01/05/18 at 09:00 Iohexol (Omnipaque 300 Mg/ml) 75 ml 1X ONCE IV Last administered on at 09:30; Start 01/05/18 at 09:30; Stop 01/05/18 at 09:31; Status DC Info (CONTRAST GIVEN -- Rx MONITORING) 1 each PRN DAILY PRN MC SEE COMMENTS; Start 01/05/18 at 09:30; Stop 01/07/18 at 09:29 Active Scripts Active Reported Aspir-Low (Aspirin) 81 Mg Tablet. 1 Tab PO DAILY Vitals/I & O Vital Sign - Last 24 Hours 01/05/18 01/05/18 01/05/18 01/05/18 15:00 19:00 20:00 23:00 Temp 98.8 98.9 98.3 98.8 98.9 98.3 Pulse 75 78 74 Resp 20 26 20 B/P (MAP) 114/77 (89) 115/75 (88) 114/71 (85) Pulse Ox 94 96 97 O2 Delivery Room Air Room Air Room Air Room Air 01/06/18 01/06/18 01/06/18 02:52 07:00 08:00 Temp 99.3 98.6 99.3 98.6 Pulse 76 76 Resp 18 20 B/P (MAP) 112/69 (83) 111/70 (84) Pulse Ox 96 97 O2 Delivery Room Air Room Air Room Air Intake and Output 01/05/18 01/05/18 01/06/18 15:00 23:00 07:00 Intake Total 360 ml 240 ml Output Total 800 ml Balance 360 ml 240 ml -800 ml GENIA JAMES MD Jan 06, 2018 11:20
--- NOTE | 2018-01-06 14:33 | PDOC ---
Subjective: Subjective: Feels better today, would like to advance diet. Objective: Vital Signs: Vital Signs Date Time Temp Pulse Resp B/P (MAP) Pulse Ox O2 Delivery O2 Flow Rate FiO2 01/06/18 11:00 98.3 78 20 105/72 (83) 98 Room Air 98.3 Labs: Laboratory Tests Test 01/05/18 16:25 01/06/18 07:36 Hepatitis A IgM Antibody Nonreactive White Blood Count 13.2 x10^3/uL Red Blood Count 3.86 x10^6/uL Hemoglobin 12.7 g/dL Hematocrit 36.7 % Mean Corpuscular Volume 95 fL Mean Corpuscular Hemoglobin 33 pg Mean Corpuscular Hemoglobin Concent 35 g/dL Red Cell Distribution Width 13.8 % Platelet Count 462 x10^3/uL Neutrophils (%) (Auto) 84 % Lymphocytes (%) (Auto) 11 % Monocytes (%) (Auto) 5 % Eosinophils (%) (Auto) 0 % Basophils (%) (Auto) 1 % Neutrophils # (Auto) 11.0 x10^3uL Lymphocytes # (Auto) 1.4 x10^3/uL Monocytes # (Auto) 0.6 x10^3/uL Eosinophils # (Auto) 0.0 x10^3/uL Basophils # (Auto) 0.1 x10^3/uL Sodium Level 132 mmol/L Potassium Level 3.7 mmol/L Chloride Level 98 mmol/L Carbon Dioxide Level 26 mmol/L Anion Gap 8 Blood Urea Nitrogen 13 mg/dL Creatinine 1.0 mg/dL Estimated GFR (Cockcroft-Gault) 93.2 Glucose Level 88 mg/dL Calcium Level 8.4 mg/dL Total Bilirubin 6.0 mg/dL Direct Bilirubin 5.3 mg/dL Aspartate Amino Transf (AST/SGOT) 73 U/L Alanine Aminotransferase (ALT/SGPT) 61 U/L Alkaline Phosphatase 116 U/L Total Protein 6.5 g/dL Albumin 1.4 g/dL Imaging: CT A/P IMPRESSION: 1. Poor opacification of the liver and the intrahepatic vasculature. The patient 's possible left hepatic mass is not delineated. Multiphase CT scanning of the liver is suggested for further evaluation, if clinically indicated. 2. No acute intra-abdominal abnormality is detected. 3. Scrotal hydrocele. 4. Moderate bibasilar linear atelectasis and/or scarring. MRCP (pending) PE: GEN: NAD LUNGS: CTAB HEART: RRR ABD: S/ND/NT NEURO/PSYCH: A & O 3 A/P: Jaundice - bili improved -on US: hepatomegaly, hepatic steatosis, thickened PV, left hepatic lesion -CT unhelpful -- Await MRCP. ADAT. EVIN JEAN Jan 06, 2018 14:33
--- NOTE | 2018-01-06 14:43 | RAD ---
MRCP, 01/06/2018: HISTORY: Jaundice Imaging was performed in coronal and axial planes utilizing a variety of imaging sequences including T2 weighted, fat suppressed T2 weighted diffusion-weighted and opposed phase gradient echo sequences. Heavily T2 weighted MRCP sequences were performed with and without respiratory gating with 3-D reconstructions attempted. The imaging is suboptimal, apparently due to the patient's inability to follow breathing commands. The biliary tree is not adequately delineated on the 3-D images. The common bile duct is visualized on some of the other sequences and it is small. No filling defect is seen in the common duct. A small portion of the pancreatic duct is visualized and it is unremarkable. The gallbladder is collapsed. The liver is poorly delineated. There appears to be periportal edema which is a nonspecific finding. No hepatic mass is evident. IMPRESSION: Suboptimal exam demonstrating no evidence of biliary obstruction. Electronically signed by: Sujit Carolina MD (01/06/2018 2:40 PM) [facility]
[2018-01-06 15:00] VITALS: BP 111/75
[2018-01-06 19:00] VITALS: BP 103/73
[2018-01-06] MEDS: LACTOBACILLUS RHAMNOSUS GG 1 CAPSULE. PO SCH (20:47)
[2018-01-06 23:00] VITALS: BP 106/72
[2018-01-07 03:00] VITALS: BP 111/73
[2018-01-07] MEDS: PIPERACILLIN/TAZOBACTAM 3.375 GM in IV NORMAL SALINE 50ML 50 ML IV SCH (05:49)
[2018-01-07] MEDS: IV NORMAL SALINE 1000ML BAG 1,000 ML IV SCH (05:50)
[2018-01-07 07:00] VITALS: BP 111/66
[2018-01-07] MEDS: ASPIRIN ENTERIC COATED 81 MG TABLET.DR. PO SCH (08:36)
[2018-01-07] MEDS: LACTOBACILLUS RHAMNOSUS GG 1 CAPSULE. PO SCH ×2 (08:36→20:21)
[2018-01-07 11:00] VITALS: BP 109/72
--- NOTE | 2018-01-07 11:28 | PDOC ---
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 Elevated LFTs-AST 95, ALT 83, alkaline phosphatase 140s SIRS-leukocytosis 19.2 Fevers-MAXIMUM TEMPERATURE 100.2 - reoslved History of Present Illness History of Present Illness He has no complaints No fevers CAT scan is pretty much unimpressive-no CBD stones or obstrxn that would explain his mild jaundice MRCP shows also no obstruction was not able to appreciate a hemangioma or liver mass seen on ultrasound No mention of portal vein thrombosis on CT at bedside, admits to pt weight loss 10 lbs maybe in 2-3 mos STill tea colored urine Bilirubin still high but better than on admission He would like to get to the bottom of things and he would rather stay here over the weekend rather than follow-up as outpatient-GI is aware of this Plan: Keep over the weekend CMP again on Tuesday So far ultrasound MRCP, unrevealing of any CBD/obstruction causing the jaundice or direct hyperbilirubinemia Vitals Vitals Vital Signs Date Time Temp Pulse Resp B/P (MAP) Pulse Ox O2 Delivery O2 Flow Rate FiO2 01/07/18 11:00 98.1 67 20 109/72 (84) 98 Room Air 98.1 Physical Exam General: Alert, Oriented X3, Cooperative, No acute distress Heart: Regular rate, Normal S1, Normal S2 Lungs: Clear Abdomen: Normal bowel sounds, Soft, No tenderness, No hepatosplenomegaly, No masses, Other (hard to appreciate jaundice given skin color) Extremities: No clubbing, No cyanosis, No edema, Normal pulses, No tenderness/ swelling Skin: No rashes, No breakdown, No significant lesion Review of Systems Review of Systems A 14 point ROS was completed with the following noted as positive: Other systems reviewed and negative. \CONSTITUTIONAL: No fever or chills EYES: No recent changes SKIN: No rash or itching CARDIOVASCULAR: No chest pain, syncope, palpitations, or edema RESPIRATORY: No SOB or cough GASTROINTESTINAL: No nausea, vomiting or abdominal pain NEUROLOGICAL: No headaches or weakness ENDOCRINE: No cold or heat intolerance GENITOURINARY: No urgency or frequency of urination MUSCULOSKELETAL: No back pain or joint pain LYMPHATICS: No enlarged lymph nodes PSYCHIATRIC: No anxiety or depression Assessment and Plan Assessmemt and Plan Problems Medical Problems: (1) Hyponatremia Status: Acute (2) Jaundice Status: Acute (3) Upper abdominal pain Status: Acute Comment Review of Relevant I have reviewed the following items [place] (where applicable) has been applied. Labs Laboratory Tests Test 01/05/18 16:25 01/06/18 07:36 Hepatitis A IgM Antibody Nonreactive (Nonreactive) White Blood Count 13.2 x10^3/uL (4.0-11.0) Red Blood Count 3.86 x10^6/uL (4.30-5.70) Hemoglobin 12.7 g/dL (13.0-17.5) Hematocrit 36.7 % (39.0-53.0) Mean Corpuscular Volume 95 fL (79-100) Mean Corpuscular Hemoglobin 33 pg (25-35) Mean Corpuscular Hemoglobin Concent 35 g/dL (31-37) Red Cell Distribution Width 13.8 % (11.5-14.5) Platelet Count 462 x10^3/uL (140-400) Neutrophils (%) (Auto) 84 % (31-73) Lymphocytes (%) (Auto) 11 % (24-48) Monocytes (%) (Auto) 5 % (0-9) Eosinophils (%) (Auto) 0 % (0-3) Basophils (%) (Auto) 1 % (0-3) Neutrophils # (Auto) 11.0 x10^3uL (1.8-7.7) Lymphocytes # (Auto) 1.4 x10^3/uL (1.0-4.8) Monocytes # (Auto) 0.6 x10^3/uL (0.0-1.1) Eosinophils # (Auto) 0.0 x10^3/uL (0.0-0.7) Basophils # (Auto) 0.1 x10^3/uL (0.0-0.2) Sodium Level 132 mmol/L (136-145) Potassium Level 3.7 mmol/L (3.5-5.1) Chloride Level 98 mmol/L (98-107) Carbon Dioxide Level 26 mmol/L (21-32) Anion Gap 8 (6-14) Blood Urea Nitrogen 13 mg/dL (8-26) Creatinine 1.0 mg/dL (0.7-1.3) Estimated GFR (Cockcroft-Gault) 93.2 Glucose Level 88 mg/dL (70-99) Calcium Level 8.4 mg/dL (8.5-10.1) Total Bilirubin 6.0 mg/dL (0.2-1.0) Direct Bilirubin 5.3 mg/dL (0.0-0.2) Aspartate Amino Transf (AST/SGOT) 73 U/L (15-37) Alanine Aminotransferase (ALT/SGPT) 61 U/L (16-63) Alkaline Phosphatase 116 U/L (46-116) Total Protein 6.5 g/dL (6.4-8.2) Albumin 1.4 g/dL (3.4-5.0) Medications Current Medications Sodium Chloride 1,000 ml @ 1,000 mls/hr Q1H IV Last administered on at 18:34; Start 01/04/18 at 18:34; Stop 01/04/18 at 19:33; Status DC Piperacillin Sod/ Tazobactam Sod 3.375 gm/Sodium Chloride 50 ml @ 100 mls/hr 1X ONCE IV Last administered on 01/04/18at 20:25; Start 01/04/18 at 20:30; Stop 01/04/18 at 20:59; Status DC Iohexol (Omnipaque 300 Mg/ml) 75 ml 1X ONCE IV Last administered on at 20:15; Start 01/04/18 at 20:15; Stop 01/04/18 at 20:16; Status DC Info (CONTRAST GIVEN -- Rx MONITORING) 1 each PRN DAILY PRN MC SEE COMMENTS; Start 01/04/18 at 20:30; Stop 01/05/18 at 19:45; Status DC Influenza Virus Vaccine (Afluria Trivalent [id number] Syringe) 0.5 ml ONCE ONCE VAX IM Last administered on 01/05/18at 10:26; Start 01/05/18 at 09:00; Stop 01/05/18 at 09:01; Status DC Ondansetron HCl (Zofran) 4 mg PRN Q6HRS PRN IV NAUSEA/VOMITING; Start at 01:00 Morphine Sulfate (Morphine Sulfate) 2 mg PRN Q2HR PRN IV PAIN; Start 01/05/18 at 01:00 Sodium Chloride 1,000 ml @ 125 mls/hr Q8H IV Last administered on 01/07/18at 05:50; Start 01/05/18 at 01:00; Stop 01/07/18 at 10:45; Status DC Acetaminophen/ Hydrocodone Bitart (Lortab 5/325) 1 tab PRN Q4HRS PRN PO PAIN; Start 01/05/18 at 08:15 Piperacillin Sod/ Tazobactam Sod (Zosyn Per Pharmacy) 1 each PRN DAILY PRN MC SEE COMMENTS; Start 01/05/18 at 08:15 Acetaminophen (Tylenol) 500 mg PRN Q6HRS PRN PO MILD PAIN / TEMP; Start at 08:15 Aspirin (Ecotrin) 81 mg DAILY PO Last administered on 01/07/18at 08:36; Start 01/05/18 at 09:00 Piperacillin Sod/ Tazobactam Sod 3.375 gm/Sodium Chloride 50 ml @ 100 mls/hr Q6HRS IV Last administered on 01/07/18at 05:49; Start 01/05/18 at 09:00; Stop 01/07/18 at 10:45; Status DC Iohexol (Omnipaque 300 Mg/ml) 75 ml 1X ONCE IV Last administered on at 09:30; Start 01/05/18 at 09:30; Stop 01/05/18 at 09:31; Status DC Info (CONTRAST GIVEN -- Rx MONITORING) 1 each PRN DAILY PRN MC SEE COMMENTS; Start 01/05/18 at 09:30; Stop 01/07/18 at 09:29; Status DC Lactobacillus Rhamnosus (Culturelle) 1 cap BID PO Last administered on at 08:36; Start 01/06/18 at 21:00 Active Scripts Active Reported Aspir-Low (Aspirin) 81 Mg Tablet. 1 Tab PO DAILY Vitals/I & O Vital Sign - Last 24 Hours 01/06/18 01/06/18 01/06/18 01/06/18 15:00 19:00 20:40 23:00 Temp 98.4 98.1 100.0 98.4 98.1 100.0 Pulse 69 74 69 Resp 20 20 19 B/P (MAP) 111/75 (87) 103/73 (83) 106/72 (83) Pulse Ox 100 96 97 O2 Delivery Room Air Room Air Room Air Room Air 01/07/18 01/07/18 01/07/18 01/07/18 03:00 07:00 07:50 11:00 Temp 98.7 98.5 98.1 98.7 98.5 98.1 Pulse 63 67 67 Resp 17 20 20 B/P (MAP) 111/73 (86) 111/66 (81) 109/72 (84) Pulse Ox 96 100 98 O2 Delivery Room Air Room Air Room Air Room Air Intake and Output 01/06/18 01/06/18 01/07/18 15:00 23:00 07:00 Intake Total 960 ml 1000 ml 150 ml Output Total 250 ml 500 ml 1050 ml Balance 710 ml 500 ml -900 ml Nutrition Consultation Dietary Evaluation: Recommendations by RD: Increase Calorie Intake, Protein supplementation Comments: added ensure clear tid until diet advances Expected Outcomes/Goals: diet adv/ tolerance Interpretation of weight loss: >5% in 1 month Malnutrition Findings: Food and Nutrition Intake (Sev: <50% est energy req 5days Weight Status: Obese GENIA JAMES MD Jan 07, 2018 11:28
[2018-01-07 15:55] VITALS: BP 111/69
[2018-01-07 19:00] VITALS: BP 116/75
[2018-01-07 22:32] VITALS: BP 107/70
[2018-01-08 03:00] VITALS: BP 98/60
[2018-01-08 07:00] VITALS: BP 107/68
[2018-01-08] MEDS: LACTOBACILLUS RHAMNOSUS GG 1 CAPSULE. PO SCH ×2 (08:25→20:11)
[2018-01-08] MEDS: ASPIRIN ENTERIC COATED 81 MG TABLET.DR. PO SCH (08:25)
--- NOTE | 2018-01-08 10:50 | PDOC ---
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 with an albumin 2.0 Elevated LFTs-AST 95, ALT 83, alkaline phosphatase 140s - improving SIRS-leukocytosis 19.2- IMPROVING - no source Fevers-MAXIMUM TEMPERATURE 100.2 - resolved History of Present Illness History of Present Illness Tea Colored urine is clearing up Total bili is coming down but still on the elevated side-6 from 9 on admit - direct hyperbilirubinemia with neg obstruction on studies (US< MRCP and CT abd) He wishes to stay until Tuesday to talk with the GI doc, finalize plans etc Plan: Recheck CMP tomorrow hopefully bili will cont to decrease LIkely home tmr with no new meds On reg diet, no problems NOn alcoholic, no known Hepatitis, good lfestyle (lives at home with ) Vitals Vitals Vital Signs Date Time Temp Pulse Resp B/P (MAP) Pulse Ox O2 Delivery O2 Flow Rate FiO2 01/08/18 07:50 Room Air 01/08/18 07:00 97.7 62 20 107/68 (81) 98 97.7 Physical Exam General: Alert, Oriented X3, Cooperative, No acute distress Heart: Regular rate, Normal S1, Normal S2 Lungs: Clear Abdomen: Normal bowel sounds, Soft, No tenderness, No hepatosplenomegaly, No masses, Other (hard to appreciate jaundice given skin color) Extremities: No clubbing, No cyanosis, No edema, Normal pulses, No tenderness/ swelling Skin: No rashes, No breakdown, No significant lesion Review of Systems Review of Systems A 14 point ROS was completed with the following noted as positive: Other systems reviewed and negative. \CONSTITUTIONAL: No fever or chills EYES: No recent changes SKIN: No rash or itching CARDIOVASCULAR: No chest pain, syncope, palpitations, or edema RESPIRATORY: No SOB or cough GASTROINTESTINAL: No nausea, vomiting or abdominal pain NEUROLOGICAL: No headaches or weakness ENDOCRINE: No cold or heat intolerance GENITOURINARY: No urgency or frequency of urination MUSCULOSKELETAL: No back pain or joint pain LYMPHATICS: No enlarged lymph nodes PSYCHIATRIC: No anxiety or depression Assessment and Plan Assessmemt and Plan Problems Medical Problems: (1) Hyponatremia Status: Acute (2) Jaundice Status: Acute (3) Upper abdominal pain Status: Acute Comment Review of Relevant I have reviewed the following items [place] (where applicable) has been applied. Medications Current Medications Sodium Chloride 1,000 ml @ 1,000 mls/hr Q1H IV Last administered on at 18:34; Start 01/04/18 at 18:34; Stop 01/04/18 at 19:33; Status DC Piperacillin Sod/ Tazobactam Sod 3.375 gm/Sodium Chloride 50 ml @ 100 mls/hr 1X ONCE IV Last administered on 01/04/18at 20:25; Start 01/04/18 at 20:30; Stop 01/04/18 at 20:59; Status DC Iohexol (Omnipaque 300 Mg/ml) 75 ml 1X ONCE IV Last administered on at 20:15; Start 01/04/18 at 20:15; Stop 01/04/18 at 20:16; Status DC Info (CONTRAST GIVEN -- Rx MONITORING) 1 each PRN DAILY PRN MC SEE COMMENTS; Start 01/04/18 at 20:30; Stop 01/05/18 at 19:45; Status DC Influenza Virus Vaccine (Afluria Trivalent [id number] Syringe) 0.5 ml ONCE ONCE VAX IM Last administered on 01/05/18at 10:26; Start 01/05/18 at 09:00; Stop 01/05/18 at 09:01; Status DC Ondansetron HCl (Zofran) 4 mg PRN Q6HRS PRN IV NAUSEA/VOMITING; Start at 01:00 Morphine Sulfate (Morphine Sulfate) 2 mg PRN Q2HR PRN IV PAIN; Start 01/05/18 at 01:00 Sodium Chloride 1,000 ml @ 125 mls/hr Q8H IV Last administered on 01/07/18at 05:50; Start 01/05/18 at 01:00; Stop 01/07/18 at 10:45; Status DC Acetaminophen/ Hydrocodone Bitart (Lortab 5/325) 1 tab PRN Q4HRS PRN PO PAIN; Start 01/05/18 at 08:15 Piperacillin Sod/ Tazobactam Sod (Zosyn Per Pharmacy) 1 each PRN DAILY PRN MC SEE COMMENTS; Start 01/05/18 at 08:15 Acetaminophen (Tylenol) 500 mg PRN Q6HRS PRN PO MILD PAIN / TEMP; Start at 08:15 Aspirin (Ecotrin) 81 mg DAILY PO Last administered on 01/08/18at 08:25; Start 01/05/18 at 09:00 Piperacillin Sod/ Tazobactam Sod 3.375 gm/Sodium Chloride 50 ml @ 100 mls/hr Q6HRS IV Last administered on 01/07/18at 05:49; Start 01/05/18 at 09:00; Stop 01/07/18 at 10:45; Status DC Iohexol (Omnipaque 300 Mg/ml) 75 ml 1X ONCE IV Last administered on at 09:30; Start 01/05/18 at 09:30; Stop 01/05/18 at 09:31; Status DC Info (CONTRAST GIVEN -- Rx MONITORING) 1 each PRN DAILY PRN MC SEE COMMENTS; Start 01/05/18 at 09:30; Stop 01/07/18 at 09:29; Status DC Lactobacillus Rhamnosus (Culturelle) 1 cap BID PO Last administered on at 08:25; Start 01/06/18 at 21:00 Active Scripts Active Reported Aspir-Low (Aspirin) 81 Mg Tablet. 1 Tab PO DAILY Vitals/I & O Vital Sign - Last 24 Hours 01/07/18 01/07/18 01/07/18 01/07/18 11:00 15:55 19:00 20:00 Temp 98.1 98.0 99.6 98.1 98.0 99.6 Pulse 67 68 67 Resp 20 20 18 B/P (MAP) 109/72 (84) 111/69 (83) 116/75 (89) Pulse Ox 98 100 96 O2 Delivery Room Air Room Air Room Air Room Air 01/07/18 01/08/18 01/08/18 01/08/18 22:32 03:00 07:00 07:50 Temp 99.3 98.0 97.7 99.3 98.0 97.7 Pulse 77 62 62 Resp 18 18 20 B/P (MAP) 107/70 (82) 98/60 (73) 107/68 (81) Pulse Ox 97 100 98 O2 Delivery Room Air Room Air Room Air Room Air Intake and Output 01/07/18 01/07/18 01/08/18 15:00 23:00 07:00 Intake Total 240 ml 690 ml Output Total 280 ml Balance -40 ml 690 ml Nutrition Consultation Dietary Evaluation: Recommendations by RD: Increase Calorie Intake, Protein supplementation Comments: added ensure clear tid until diet advances Expected Outcomes/Goals: diet adv/ tolerance Interpretation of weight loss: >5% in 1 month Malnutrition Findings: Food and Nutrition Intake (Sev: <50% est energy req 5days Weight Status: Obese GENIA JAMES MD Jan 08, 2018 10:50
[2018-01-08 11:00] VITALS: BP 110/65
[2018-01-08 15:00] VITALS: BP 110/69
[2018-01-08 19:00] VITALS: BP 93/54
[2018-01-08 23:00] VITALS: BP 113/77
[2018-01-09 03:00] VITALS: BP 95/63
[2018-01-09 04:30] LABS: BASO # 0.1 x10^3/uL (0.0-0.2); BASO % 1 % (0-3); EOS # 0.1 x10^3/uL (0.0-0.7); EOS % 1 % (0-3); HEMATOCRIT 33.1 % (39.0-53.0); HEMOGLOBIN 11.8 g/dL (13.0-17.5); LYMPH # 1.9 x10^3/uL (1.0-4.8); LYMPH % 21 % (24-48); MEAN CORPUSCULAR HEMOGLOBIN 34 pg (25-35); MEAN CORPUSCULAR HGB CONC 36 g/dL (31-37); MEAN CORPUSCULAR VOLUME 95 fL (79-100); MONO # 0.9 x10^3/uL (0.0-1.1); MONO % 10 % (0-9); NEUT # 6.3 x10^3uL (1.8-7.7); NEUT % 68 % (31-73); PLATELET COUNT 515 x10^3/uL (140-400); RED BLOOD COUNT 3.49 x10^6/uL (4.30-5.70); RED CELL DISTRIBUTION WIDTH 13.5 % (11.5-14.5); WHITE BLOOD COUNT 9.3 x10^3/uL (4.0-11.0)
[2018-01-09 05:06] LABS: ALBUMIN 1.5 g/dL (3.4-5.0); ALBUMIN/GLOBULIN RATIO 0.3 (1.0-1.7); CALCIUM 8.6 mg/dL (8.5-10.1); CREATININE 0.9 mg/dL (0.7-1.3); GFR 105.2; POTASSIUM 4.3 mmol/L (3.5-5.1); TOTAL BILIRUBIN 2.4 mg/dL (0.2-1.0); TOTAL PROTEIN 6.9 g/dL (6.4-8.2)
[2018-01-09 07:00] VITALS: BP 112/78
[2018-01-09] MEDS: ASPIRIN ENTERIC COATED 81 MG TABLET.DR. PO SCH (08:23)
[2018-01-09] MEDS: LACTOBACILLUS RHAMNOSUS GG 1 CAPSULE. PO SCH (08:23)
[2018-01-09 11:01] VITALS: BP 115/74
--- NOTE | 2018-01-09 11:03 | PDOC ---
Subjective: Subjective: Feels much better than when admitted. Tolerating PO, denies pain. Stooled over the weekend. Indicates would like to go home. Objective: Vital Signs: Vital Signs Date Time Temp Pulse Resp B/P (MAP) Pulse Ox O2 Delivery O2 Flow Rate FiO2 01/09/18 07:47 Room Air 01/09/18 07:00 97.7 60 20 112/78 (89) 98 97.7 Labs: Laboratory Tests Test 01/09/18 03:40 01/09/18 03:45 White Blood Count 9.3 x10^3/uL Red Blood Count 3.49 x10^6/uL Hemoglobin 11.8 g/dL Hematocrit 33.1 % Mean Corpuscular Volume 95 fL Mean Corpuscular Hemoglobin 34 pg Mean Corpuscular Hemoglobin Concent 36 g/dL Red Cell Distribution Width 13.5 % Platelet Count 515 x10^3/uL Neutrophils (%) (Auto) 68 % Lymphocytes (%) (Auto) 21 % Monocytes (%) (Auto) 10 % Eosinophils (%) (Auto) 1 % Basophils (%) (Auto) 1 % Neutrophils # (Auto) 6.3 x10^3uL Lymphocytes # (Auto) 1.9 x10^3/uL Monocytes # (Auto) 0.9 x10^3/uL Eosinophils # (Auto) 0.1 x10^3/uL Basophils # (Auto) 0.1 x10^3/uL Sodium Level 134 mmol/L Potassium Level 4.3 mmol/L Chloride Level 102 mmol/L Carbon Dioxide Level 24 mmol/L Anion Gap 8 Blood Urea Nitrogen 8 mg/dL Creatinine 0.9 mg/dL Estimated GFR (Cockcroft-Gault) 105.2 BUN/Creatinine Ratio 9 Glucose Level 110 mg/dL Calcium Level 8.6 mg/dL Total Bilirubin 2.4 mg/dL Aspartate Amino Transf (AST/SGOT) 38 U/L Alanine Aminotransferase (ALT/SGPT) 51 U/L Alkaline Phosphatase 106 U/L Total Protein 6.9 g/dL Albumin 1.5 g/dL Albumin/Globulin Ratio 0.3 Imaging: MRCP 01/06 The imaging is suboptimal, apparently due to the patient's inability to follow breathing commands. The biliary tree is not adequately delineated on the 3-D images. The common bile duct is visualized on some of the other sequences and it is small. No filling defect is seen in the common duct. A small portion of the pancreatic duct is visualized and it is unremarkable. The gallbladder is collapsed. The liver is poorly delineated. There appears to be periportal edema which is a nonspecific finding. No hepatic mass is evident. IMPRESSION: Suboptimal exam demonstrating no evidence of biliary obstruction. PE: GEN: NAD LUNGS: CTAB HEART: RRR ABD: S/ND/NT NEURO/PSYCH: A & O 3 A/P: Jaundice - bili improving (from 9.9 to 2.4) -- ?viral cholangitis Labs and symptoms improved. DC? Outpt screening colonoscopy - our office will contact. EVIN JEAN Jan 09, 2018 11:03
[2018-01-09] MEDS ORDERED: DOCUSATE SODIUM 100 MG CAPSULE. PO SCH (12:30)
[2018-01-09] MEDS ORDERED: POLYETHYLENE GLYCOL 3350 17 GM PACKET. PO ONE (13:00)
== END 2018-01-09 15:49 | disposition home or self-care (01) | DRG 441 ==
LOC: ER 17:41 → 5 SOUTH 21:30
PROVIDERS: ADMIT Internal Medicine; ATTEND Internal Medicine
DX: K76.0 Fatty (change of) liver, not elsewhere classified (principal); E43 Unspecified severe protein-calorie malnutrition; K83.09 Other cholangitis; E87.1 Hypo-osmolality and hyponatremia; R65.10 Systemic inflammatory response syndrome (SIRS) of non-infectious origin without acute organ dysfunction; D68.59 Other primary thrombophilia; R16.0 Hepatomegaly, not elsewhere classified; D18.03 Hemangioma of intra-abdominal structures; F17.210 Nicotine dependence, cigarettes, uncomplicated; N43.3 Hydrocele, unspecified; Z80.9 Family history of malignant neoplasm, unspecified; Z79.82 Long term (current) use of aspirin; Z68.30 Body mass index [BMI] 30.0-30.9, adult; Z79.899 Other long term (current) drug therapy
CPT/HCPCS: 36415; 74177; 74181; 76705; 80048; 80053; 80076; 80307; 81001; 83690; 84443; 85007; 85025; 85610; 86709; 90471; 90756; 93005; 96361; 96365; 99406; J2543; J7030; Q9967; 99285-25; G0479; Q2035